=== PATIENT | female | born 1955 | race Caucasian/White ===

== ENCOUNTER 2017-07-13 21:26 | Emergency (ER) | payer OTHER, SELFPAY ==
[2017-07-13] MEDS ORDERED: Ondansetron HCl/PF 4 MG/2 ML Vial ONE (21:40)
[2017-07-13] MEDS ORDERED: Morphine 4 MG/ML Carpuject ONE ×2 (21:51→21:53)
[2017-07-13] MEDS ORDERED: Ketorolac Tromethamine 30 MG/ML VIAL ONE (21:52)
[2017-07-13 21:53] LABS: #Basophils 0.1 thou/uL (0.0-0.2); #Eosinphils 0.2 thou/uL (0.0-0.7); #Lymphocytes 2.6 thou/uL (1.20-3.40); #Monocytes 0.5 thou/uL (0.11-0.59); #Neutrophils 6.1 thou/uL (1.40-6.50); %Basophils 1.2 % (0.0-1.0); %Eosinophils 2.5 % (0.0-10.0); %Lymphocytes 27.1 % (21.0-51.0); %Monocytes 5.1 % (0.0-10.0); %Neutrophils 64.1 % (42.0-75.0); Hemoglobin 12.9 g/dL (12.0-16.0); Mean Corpuscular HGB CONC 33.2 g/dL (32.0-36.0); Mean Corpuscular Hemoglobin 28.4 pg (27.0-31.0); Mean Corpuscular Volume 85.7 fl (81.0-99.0); Mean Platelet Volume 7.8 fL (7.4-10.4); Platelet Count 242 thou/uL (130-400); RBC Distribution Width 11.6 % (11.5-14.5); Red Blood Cell (RBC) Count 4.55 mill/uL (4.20-5.40); White Blood Cell (WBC) Count 9.5 thou/uL (4.8-10.8)
[2017-07-13 22:08] LABS: ALT (SGPT) 62 U/L (8-55); AST (SGOT) 53 U/L (5-34); Albumin 4.4 g/dL (3.4-4.8); Alkaline Phosphatase 86 U/L (40-150); Anion Gap 17 mmol/L (10-20); BUN (Urea Nitrogen) 13 mg/dL (9.8-20.1); Bilirubin, Total 0.4 mg/dL (0.2-1.2); Calc. Creatinine Clearance 0 mL/min (70-130); Calcium 9.7 mg/dL (7.8-10.44); Carbon Dioxide 25 mmol/L (23-31); Chloride 102 mmol/L (98-107); Estimated GFR-MDRD 69; Globulin 3.6 g/dL (2.4-3.5); Glucose 135 mg/dL (80-115); Lipase 42 U/L (8-78); Sodium 140 mmol/L (136-145)
[2017-07-13 22:48] LABS: Bilirubin Small (Negative); Blood, Urine Large (Negative); Clarity Cloudy (Clear); Glucose, Urine (Dipstick) Negative (Negative); Leukocyte Small (Negative); Nitrite Negative (Negative); Protein, Urine (Dipstick) 100 mg/dL (Neg-Trace); Specific Gravity, Urine 1.022 (1.002-1.036); Urobilinogen 0.2 mg/dL (0.2-1.0)
[2017-07-13 22:51] LABS: Bacteria/HPF 1+ HPF (None Seen); Crystals/HPF 4+ AMORPH URATES HPF (Negative); Hyaline Casts/LPF NONE SEEN LPF (0-3 Hyaline); RBC/HPF GREATER THAN 50-TNTC HPF (0-3)
[2017-07-13 22:53] LABS: Transitional Epithelial 0-3 HPF (0-3)
--- NOTE | 2017-07-13 22:53 | CT ---
CT ABDOMEN AND PELVIS WITHOUT CONTRAST: Date: 07-13-17 Provided Clinical History: Abdominal pain. FINDINGS: Compared with study dated 09-13-13. Visualized lung bases are free of significant opacity. Changes of fatty infiltration of the liver is noted. The solid abdominal organs are suboptimally eval uated without IV contrast material that demonstrate an otherwise unremarkable unenhanced CT appearanc e. No evidence for urinary tract calculi or hydronephrosis. No bowel dilatation, inflammatory fat str anding, free fluid or free air apparent. The appendix is not distinctly identified without CT evidenc e for appendicitis. Small fat containing umbilical hernia is seen. Sigmoid colonic diverticula are no lc. The osseous structures demonstrate no concerning osteoblastic or osteolytic lesions. IMPRESSION: 1. No evidence for an acute process. Chronic findings as above. POS: MARIELA
== END 2017-07-13 23:15 | disposition home or self-care (01) ==
LOC: SCSER 21:26
DX: N30.01 Acute cystitis with hematuria (principal); E11.9 Type 2 diabetes mellitus without complications
CPT/HCPCS: 74176; 80053; 81003; 81015; 83690; 85025; 87086; 96361; 96374; 96375; J1885; J2270; J2405

== ENCOUNTER 2019-12-21 10:39 | Outpatient (CLI) | payer BC ==
--- NOTE | 2019-12-21 16:21 | NM ---
NUCLEAR MEDICINE BRAIN IMAGING: HISTORY: Unspecified abnormalities of gait and mobility TECHNIQUE: A Robin scan with axial tomographic images of the brain was obtained 3 hours following the intravenous administration of 4.1mCi I-123 Ioflupane. The patient was pretreated with 130 mg of oral potassium iodide 1 hour prior to the injection. FINDINGS: There is normal symmetric uptake in the striata bilaterally, demonstrating symmetric, crescent-shaped focal regions of activity mirrored about the median plane. IMPRESSION: Normal exam.
== END 2019-12-21 10:40 | disposition home or self-care (01) ==
LOC: NM 10:39
PROVIDERS: ATTEND Psychiatry & Neurology Neurology
DX: R25.1 Tremor, unspecified (principal); R26.9 Unspecified abnormalities of gait and mobility
CPT/HCPCS: 78803; A9584